=== PATIENT | male | born 1990 | race Caucasian/White ===

== ENCOUNTER 2020-03-25 10:15 | Outpatient (CLI) | payer OTHER, SELFPAY ==
--- NOTE | ~2020-03-25 | US_ITS ---
US scrotum doppler INDICATION: Testicular lump. TECHNIQUE: Testicular sonogram utilizing grayscale and color Doppler FINDINGS: The testes are normal in size and appearance. No focal lesions are seen. The right testes measures 5.3 x 2.6 x 2.9 cm centimeters, and the left testis measures 4.7 x 2.3 x 3.2 cm cm. There is normal vascular flow to both testes. The right and left epididymides appear normal. There are small bilateral hydroceles. There are calcifications in the left hydrocele, of doubtful cli nical significance. IMPRESSION: 1. Small hydroceles with multiple echogenic foci in the left hydrocele, likely calcification, of wanda btful clinical significance. Reviewed, dictated and finalized at location A. IMPRESSION: 1. Small hydroceles with multiple echogenic foci in the left hydrocele, likely calcification, of doubtful clinical significance.
== END 2020-03-25 10:16 ==
PROVIDERS: PCP Family Medicine Sports Medicine; Visit Provider Family Medicine Sports Medicine
DX: N50.89 Other specified disorders of the male genital organs (principal)
CPT/HCPCS: 76870; 93976